=== PATIENT | male | born 1975 | race Caucasian/White ===

== ENCOUNTER 2024-02-25 09:33 | Emergency (ER) | payer OTHER, SELFPAY ==
--- NOTE | ~2024-02-25 | XR_ITS ---
EXAMINATION: XR LUMBOSACRAL SPINE CLINICAL INFORMATION: Low back pain, no trauma COMPARISON: None available. TECHNIQUE: Three views of the lumbosacral spine. FINDINGS: Degenerative disc disease is evident at L5-S1 with 6 mm of retrolisthesis. Prominent anterior osteophyte is evident at this level, as is endplate sclerosis. No acute fracture is detected. Vertebral body height is maintained. XR/XR lumbar spine 2-3V IMPRESSION: Degenerative disc disease with retrolisthesis at L5-S1.
[2024-02-25 10:03] VITALS: BP 122/84; PULSE 73; RESP 16; TEMP 37.1; O2SAT 98; BMI 29.6
--- NOTE | 2024-02-25 13:39 | ED.GENADULT ---
HPI - General Adult General Chief complaint: Back Pain/Injury Stated complaint: Back Pain No Injury Time Seen by Provider: 02/25/24 13:37 Source: patient and interpreter and translator (all interactions with this patient were facilitated with an [facility] interpreter and translator) Mode of arrival: ambulatory Limitations: language barrier (all interactions with this patient were facilitated with an [facility] interpreter and translator) History of Present Illness HPI narrative: Patient is a 48 year old assigned male at with a history of a previous back injury presenting to the emergency department today with low back pain. 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 Patient denies any dizziness, lightheadedness, abdominal pain, nausea, vomiting, fever, chills, blurry vision, double vision, loss of vision, chest pain, difficulty breathing, shortness of breath, night sweats, pain with urination, increased urinary frequency, increased urinary urgency, blood in his urine or stool, syncope or a near syncopal episode, recent trauma or falls, bowel incontinence, bladder incontinence, bowel retention, bladder retention, or any other complaints at this time. Onset (ago): day(s) Location: back Severity: mild Severity scale (1-10): 4 Quality: aching Pain Consistency: constant Relieving factors: none Exacerbating factors: none Associated symptoms: denies other symptoms Treatments prior to arrival: none Related Data Previous Rx's ?Medication ?Instructions ?Recorded cyclobenzaprine 5 mg tablet 5 mg PO TID PRN back pain 7 days 02/25/24 #21 tabs Allergies Allergy/AdvReac Type Severity Reaction Status Date / Time No Known Allergies Allergy Verified 02/25/24 10:06 Review of Systems Constitutional: Constitutional: Reports no additional constitutional complaints, Denies chills, Denies fever(s) and Denies night sweats Eyes: Eyes: Reports no additional eye complaints, Denies blurry vision, Denies change in vision, Denies diplopia, Denies eye discharge, Denies loss of vision and Denies eye pain ENT: Denies dizziness Cardiovascular: Cardiovascular: Reports no additional cardiovascular complaints, Denies chest pain, Denies lightheadedness, Denies Loss of Consciousness and Denies dyspnea Respiratory: Respiratory: Reports no additional respiratory complaints and Denies dyspnea Gastrointestinal: Gastrointestinal: Reports no additional gastrointestinal complaints, Denies abdominal pain, Denies melena, Denies hematochezia, Denies change in bowel habits and Denies change in stool character Genitourinary: Genitourinary: Reports no additional male genitourinary complaints, Denies hematuria, Denies oliguria, Denies difficulty urinating, Denies dysuria, Denies urinary frequency, Denies urinary hesitancy, Denies urinary incontinence and Denies urinary urgency Musculoskeletal: Musculoskeletal: Reports no additional musculoskeletal complaints, Reports back pain, Denies numbness and Denies tingling Neurologic: Denies dizziness, Denies loss of vision, Denies numbness and Denies tingling Psychiatric: Psychiatric: Reports no additional psychiatric complaints Endocrine: Endocrine: Reports no additional endocrine complaints Hematologic/Lymphatic: Hematologic/Lymphatic: Reports no additional hematologic/lymphatic complaints Allergic/Immunologic: Allergic/Immunologic: Reports no additional allergic/immunologic complaints PMFSH Past Medical History Attestation statement: The following information was validated with the patient. Source: old records reviewed and nursing notes reviewed Social History Social History Advance Directives: No Advance Directives Information Provided: No Physical Exam ED Vital Signs: Vital Signs - 24 hr 02/25/24 10:03 02/25/24 14:16 Temperature 98.7 F 98.7 F Pulse Rate 73 73 Respiratory Rate 16 16 Blood Pressure 122/84 122/84 Pulse Oximetry 98 98 Oxygen Delivery Method Room Air Room Air BMI result Body Mass Index 29.6 Const General: cooperative, no acute distress, alert and awake Nutritional Appearance: well nourished Orientation/consciousness: patient oriented x3 Limitations: no limitations [facility] Head: Yes normal to inspection and Yes atraumatic Ears: hearing grossly normal bilaterally and external ears normal General nose exam: Normal external nose present, no nasal discharge noted and no epistaxis Face and sinus: Yes normal facial exam, No abrasion and No laceration Mouth: Normal oral and palatal mucosa present, no drooling and no muffled voice Eyes General: appearance normal, both eyes and all related structures Periorbital: periorbital findings normal Eyelids: Yes eyelids normal Conjunctivae: conjunctivae normal Pupils: Equal, round and reactive pupils present EOM: EOMs intact bilaterally Neck Neck: Yes normal visual inspection, Yes full ROM and Yes no lymphadenopathy Chest Chest palpation & inspection: normal inspection of the chest Resp Effort & Inspection: normal respiratory effort and able to speak in complete sentences GI Inspection: Yes normal to inspection General: Yes no CVA tenderness Back/Spine/Pelvis Back: no CVA tenderness Cervical Spine: normal cervical lordosis and cervical ROM normal Thoracic/Lumbar Spine: thoraco-lumbar ROM normal Pelvis: no pain with anterior-posterior compression Neuro General: patient oriented x3 and moves all extremities Cranial nerves: Yes Equal, round and reactive pupils present Cognition (Neuro): normal cognition Motor exam (neuro): 5/5 motor strength present throughout Sensory Exam: Normal double simultaneous stimulation for sensation Coordination: [id number] test normal Extrem General: Yes normal to inspection, Yes full ROM and Yes capillary refill normal Psych Appearance: grossly normal Mental Status: mental status grossly normal Affect: normal affect Attitude: cooperative Thought process: Normal thought process present Thought content: Normal thought content present Insight: Good insight present (Psych) Medications Administered Discontinued Medications Generic Name Dose Route Start Last Admin Trade Name Freq PRN Reason Stop Dose Admin Cyclobenzaprine HCl 5 mg 02/25/24 13:49 02/25/24 14:10 Cyclobenzaprine Hcl 5 Mg Tablet PO 02/25/24 13:50 5 mg ONCE ONE Administration Ketorolac Tromethamine 15 mg 02/25/24 13:49 02/25/24 14:10 Ketorolac Tromethamine 15 Mg/Ml Vial IM 02/25/24 13:50 15 mg ONCE ONE Administration Medical Decision Making Medical Decision Making [facility] Narrative: Patient is a 48 year old assigned male at with a history of previous back injury presenting to the emergency department today with low back pain. Patient's physical exam was unremarkable. Patient's lumbar x-ray showed degenerative disc disease with retrolisthesis at L5-S1. I explained my physical exam findings as well as all test results to the patient. I answered all questions asked by the patient. I stressed the importance of the patient taking his medication as prescribed. I stressed the importance of the patient following up with his primary care provider. I stressed the importance of the patient returning to the emergency department immediately if his symptoms were to worsen or if he were to develop any dizziness, shortness of breath, difficulty breathing, chest pain, blurry vision, loss of vision, nausea, vomiting, abdominal pain, fever, chills, back pain, or any other complaints. Patient verbalized agreement and understanding with this treatment plan and discharge. Differential Diagnosis Differential Diagnoses: The differential diagnosis associated with the presentation includes Low back pain Lumbar strain Lumbar sprain Admission/Observation Consideration of admission/observation: Escalation of care including admission/observation considered Patient would have been admitted to the hospital had his work up had any findings where hospital admission was appropriate and his clinical presentation warranted hospital admission. Independent Interpretation I performed an independent interpretation of an: Plain X-Ray Interpretation: My interpretation is in agreement with the radiologist's impression of this imaging study. EXAMINATION: XR LUMBOSACRAL SPINE CLINICAL INFORMATION: Low back pain, no trauma COMPARISON: None available. TECHNIQUE: Three views of the lumbosacral spine. FINDINGS: Degenerative disc disease is evident at L5-S1 with 6 mm of retrolisthesis. Prominent anterior osteophyte is evident at this level, as is endplate sclerosis. No acute fracture is detected. Vertebral body height is maintained. XR/XR lumbar spine 2-3V IMPRESSION: Degenerative disc disease with retrolisthesis at L5-S1. Dictated By: Camden Cam MD Signed By: Electronically signed by Camden Cam MD 02/25/24 1038 Radiology Impression Discussion of test interpretation with radiology: I have reviewed the radiologist's reading. Prescription Management I considered prescription management with: Pain Medication (patient prescribed pain medication) Discharge Plan Discharge Clinical Impression: Strain of lumbar region Patient Disposition: Home, Self-Care Instructions: Back Pain (ED) Additional Instructions: Follow up with your primary care provider. Return to the emergency department immediately if your symptoms worsen or if you develop any dizziness, shortness of breath, difficulty breathing, chest pain, blurry vision, loss of vision, nausea, vomiting, abdominal pain, fever, chills, back pain, or any other complaints. Prescriptions: New cyclobenzaprine 5 mg tablet 5 mg PO TID PRN (Reason: back pain) 7 Days Qty: 21 0RF Referrals: [facility] Family Medicine [Provider Group] (Call to establish and follow up with a primary care provider. If you already have a primary care provider, please follow up with them.) [facility] Primary CareMaximilian [Provider Group] [facility] Primary CareClarisa [Provider Group] Stand Alone Forms: Work/School Release Interventions: ED Discharge Assessment Last Done: 02/25/24 14:16 Discharge Date/Time: 02/25/24 14:17 Print Language: New Zealander
[2024-02-25] MEDS: Ketorolac Tromethamine 15 MG/ML VIAL IM (14:10)
[2024-02-25] MEDS: Cyclobenzaprine HCl 5 MG TABLET PO (14:10)
[2024-02-25 14:16] VITALS: BP 122/84; PULSE 73; RESP 16; TEMP 37.1; O2SAT 98
== END 2024-02-25 14:17 | disposition home or self-care (01) ==
PROVIDERS: Emergency Provider Emergency Medicine
DX: M54.50 Low back pain, unspecified (principal)
CPT/HCPCS: 72100; 96372; 99284; J1885

== ENCOUNTER 2024-11-23 12:53 | Emergency (ER) | payer OTHER, SELFPAY ==
[2024-11-23 14:41] VITALS: BP 120/78; PULSE 81; RESP 16; TEMP 37.7; O2SAT 99; BMI 26.7
--- NOTE | 2024-11-23 14:48 | ED_ITS ---
HPI - General Adult General Chief complaint: Upper Respiratory Symptoms Stated complaint: Body pain, nausea, vomiting Time Seen by Provider: 11/23/24 15:41 Source: patient and industrial electrical engineer (fijian) Mode of arrival: ambulatory Limitations: language barrier (fijian) History of Present Illness ED Provider: FAISAL SOLORIO PA-C HPI narrative: 49 year old Arabic speaking male presents to the ED today for evaluation of myalgias, N/V/D, cough, subjective fever x2 days. He reports sick contacts at work. Did not receive this season's flu vaccine. Denies recent travel. denies abd pain, sore throat, sputum procduction. Related Data Previous Rx's ?Medication ?Instructions ?Recorded cyclobenzaprine 5 mg tablet 5 mg PO TID PRN back pain 7 days 02/25/24 #21 tabs ondansetron 4 mg disintegrating 4 mg PO DAILY PRN nausea and 11/23/24 tablet vomiting 5 days #7 tabs phenylephrine-shark liver 1 appl OH Q8H PRN hemorrhoid pain 11/23/24 oil-mineral oil-petrolatum rectal #28.4 grams ointment Allergies Allergy/AdvReac Type Severity Reaction Status Date / Time No Known Allergies Allergy Verified 11/23/24 14:44 Review of Systems 2 Review of Systems: Yes all other systems are reviewed and are negative PMFSH Past Medical History Attestation statement: The following information was validated with the patient. Source: old records reviewed and nursing notes reviewed Social History Social History Advance Directives: No Advance Directives Information Provided: Yes Physical Exam ED Vital Signs: Vital Signs - 24 hr 11/23/24 14:41 Temperature 99.9 F Pulse Rate 81 Respiratory Rate 16 Blood Pressure 120/78 Pulse Oximetry 99 Oxygen Delivery Method Room Air BMI result Body Mass Index 26.7 Course Course Course Narrative: This is a Rapid Medical Examination (RME) performed by Juanis Solorio PA-C in triage. Full HPI, ROS, assessment and treatment plan per primary provider in the Main ED. 49 yo male here for eval of myalgias, cough, subjective fever, diarrhea, poor appetite, nausea/vomiting. +sick contacts at work. + well appearing Plan: labs, viral/strep swabs Reevaluation(s) Reevaluation #1: 1552 -- cbc without leukocytosis or left shift. no anemia, h&h stable. lipase wnl. patient tested positive for influenza A. tolerating crackers. discussed all results w/ patient. educated on symptomatic treatment. Patient has remained stable throughout ED visit today. Discussed worrisome signs and symptoms and when to return to the ED. All questions answered at this time. Patient is agreeable with disposition and stable for discharge. Medical Decision Making Medical Decision Making [facility] Narrative: 49 year old Arabic speaking male presents to the ED today for evaluation of myalgias, N/V/D, cough, subjective fever x2 days. low grade temp 99.9, vitals otherwise wnl. he is nontoxic appearing and in NAD. abdomen benign. lungs clear. Will obtain labs to rule out anemia, electrolyte abnormality, dehydration, gastroenteritis. viral swabs ordered to r/o viral infection. unlikely acute abdomen - ct/ us not warranted. Differential Diagnosis Differential Diagnoses: The differential diagnosis associated with the presentation includes as above Admission/Observation not indicated. Lab Data [facility] Lab Attestation statement: I reviewed the patient's lab results. as above 11/23/24 14:50 11/23/24 14:50 Labs: Lab Results 11/23/24 Range/Units 14:50 WBC 6.4 (4.8-10.8) X10*3/uL RBC 5.24 (4.60-5.80) X10*6/uL Hgb 16.4 (14.0-18.0) g/dl Hct 46.4 (42.0-52.0) % MCV 88.5 (80.0-98.0) fL MCH 31.3 (27.0-33.0) pg MCHC 35.3 (31.0-36.0) g/dl RDW 14.0 (11.0-16.0) % Plt Count 167 (160-400) X10*3/uL MPV 9.1 L (9.4-12.4) fL Immature Gran % (Auto) 0.3 (0.0-0.4) % Neut % (Auto) 57.8 (45-73) % Lymph % (Auto) 28.5 (20-40) % [place] % (Auto) 10.6 (2-11) % Eos % (Auto) 2.2 (0-4) % Baso % (Auto) 0.6 (0-2) % Lymph # (Auto) 1.8 (1.2-4.9) X10*3/uL [place] # (Auto) 0.7 (0.1-1.2) X10*3/uL Eos # (Auto) 0.1 (0.0-0.4) X10*3/uL Baso # (Auto) 0.0 (0.0-0.2) X10*3/uL Abs Immat Gran (auto) 0.02 (0.00-0.03) X10*3/uL Absolute Neuts (auto) 3.7 (2.0-8.3) x10*3/uL Absolute Nucleated RBC 0.000 (0.0-0.012) X10*3/uL Nucleated RBC % (auto) 0.0 (0.0-0.2) /100WBC Sodium 139 (135-145) mmol/L Potassium 4.2 (3.3-5.1) mmol/L Chloride 100 (96-108) mmol/L Carbon Dioxide 26 (22-29) mmol/L Anion Gap 17 (12-20) BUN 12 (9-16) mg/dL Creatinine 1.05 (0.5-1.4) mg/dL Estim Creat Clear Calc 81.3 Estimated GFR > 60 Random Glucose 112 (60-115) mg/dL Calcium 9.2 (8.4-10.2) mg/dL Magnesium 1.9 (1.6-2.6) mg/dL Total Bilirubin 0.2 (0.0-1.0) mg/dL AST 52 H (5-37) U/L ALT 47 H (0-40) U/L Alkaline Phosphatase 65 (39-117) U/L Total Protein 8.5 H (6.5-8.0) g/dL Albumin 4.4 (3.5-5.0) g/dL Lipase 38 (8-78) U/L Influenza Type A (PCR) POSITIVE A (Negative) Influenza Type B (PCR) NEGATIVE (Negative) RSV RNA Qual (PCR) NEGATIVE (Negative) SARS-CoV-2 RNA (RT-PCR) NEGATIVE (Negative) S. pyogenes GrpA GUILLERMO Negative (Negative) External Record Review External record reviewed: Inpatient record Social Determinants Patient?s care significantly limited by Social Determinants of Health including: Other Social Determinant of Health Critical Care Time Critical Care Time Critical Care Time: No Discharge Plan Discharge Clinical Impression: Influenza A Patient Disposition: Home, Self-Care Instructions: Influenza (ED) Additional Instructions: Your blood work today is reassuring. You tested negative for COVID, RSV, strep throat. You tested positive for influenza A. The treatment for this is supportive care. Symptoms can last anywhere from 5-7 days. The recommendation is rest and lots of oral hydration.? Take tylenol/ motrin at home for fevers and body aches. Zofran is an anti-nausea medication. This has been sent to your pharmacy for you to take as needed for nausea.? You can also try over the counter Pepto Bismol or Imodium as needed for upset stomach and diarrhea.? Follow up with your primary care provider this week. If you develop new or worsening symptoms call 911 or come back to the ER for further evaluation. Prescriptions: New ondansetron 4 mg tablet,disintegrating 4 mg PO DAILY PRN (Reason: nausea and vomiting) 5 Days Qty: 7 0RF phenyleph-shark shahnaz oil-mo-pet Ointment 1 appl OH Q8H PRN (Reason: hemorrhoid pain) Qty: 28.4 0RF No Action cyclobenzaprine 5 mg tablet 5 mg PO TID PRN (Reason: back pain) 7 Days Qty: 21 0RF [place]: [facility] [place] Group] [facility] [place] Care, Maximilian [Provider Group] [facility] [place] [facility],Clarisa [Provider Group] Stand Alone Forms: Work/School Release Interventions: ED Discharge Assessment Last Done: 11/23/24 15:55 Discharge Date/Time: 11/23/24 15:56 Print Language: Arabic
[2024-11-23 14:57] LABS: MANUAL DIFF FLAG NO
[2024-11-23 14:58] LABS: Basophils Percent Auto 0.6 % (0-2); Eosinophils Absolute Auto 0.1 X10*3/uL (0.0-0.4); Eosinophils Percent Auto 2.2 % (0-4); Hematocrit 46.4 % (42.0-52.0); Hemoglobin 16.4 g/dl (14.0-18.0); Imm Gran Abs Auto 0.02 X10*3/uL (0.00-0.03); Imm Gran Pct Auto 0.3 % (0.0-0.4); Lymphocytes Absolute Auto 1.8 X10*3/uL (1.2-4.9); Lymphocytes Percent Auto 28.5 % (20-40); Mean Corpuscular HGB Conc 35.3 g/dl (31.0-36.0); Mean Corpuscular Hemoglobin 31.3 pg (27.0-33.0); Mean Corpuscular Volume 88.5 fL (80.0-98.0); Mean Platelet Volume 9.1 fL (9.4-12.4); Monocytes Absolute Auto 0.7 X10*3/uL (0.1-1.2); Monocytes Percent Auto 10.6 % (2-11); Neutrophils Absolute Auto 3.7 x10*3/uL (2.0-8.3); Neutrophils Percent Auto 57.8 % (45-73); Platelet Count 167 X10*3/uL (160-400); Red Blood Count 5.24 X10*6/uL (4.60-5.80); White Blood Count 6.4 X10*3/uL (4.8-10.8)
[2024-11-23 15:06] LABS: IDNOW Serial# 08D9AD1C; Strep A Nucleic Acid Negative (Negative)
[2024-11-23 15:13] LABS: Alanine Aminotransferase 47 U/L (0-40); Albumin Level 4.4 g/dL (3.5-5.0); Alkaline Phosphatase 65 U/L (39-117); Anion Gap 17 (12-20); Aspartate Amino Transferase 52 U/L (5-37); Bilirubin Total 0.2 mg/dL (0.0-1.0); Blood Urea Nitrogen 12 mg/dL (9-16); Calcium 9.2 mg/dL (8.4-10.2); Carbon Dioxide 26 mmol/L (22-29); Chloride 100 mmol/L (96-108); Creatinine Clr Calc Pharmacy 81.3; Estimated Glomerular Filt Rate > 60; Glucose Random 112 mg/dL (60-115); Lipase 38 U/L (8-78); Magnesium 1.9 mg/dL (1.6-2.6); Potassium 4.2 mmol/L (3.3-5.1); Sodium 139 mmol/L (135-145); Total Protein 8.5 g/dL (6.5-8.0)
[2024-11-23 15:35] LABS: Influenza A PCR POSITIVE (Negative); Influenza B PCR NEGATIVE (Negative); Resp Syncy Virus RNA Qual PCR NEGATIVE (Negative); SARS COV2 PCR INHOUSE NEGATIVE (Negative)
--- OUTSIDE RECORDS SUMMARY | 2024-11-23 15:54 | XMS_ITS | Clinical Summary ---
Author Organization [employer] Address [address] [place] [address] Care Team Providers Care Chancery Clerk Name Role Phone Unavailable Primary Care Provider Unavailabl e Allergies No known active allergies Medications cyclobenzaprine (Flexeril) 5 MG tablet TAKE 1 TABLET BY MOUTH THREE TIMES A DAY NEEDED FOR PAIN FOR 7 DAYS 02/25/2024 Active Social History Tobacco Use Types Packs/Day Years Used Date Smoking Tobacco: Former Cigarettes 0.5 25.1 S tarted: 2000 Smokeless Tobacco: Former Tobacco Cessation:Counseling Given: Not Answered Alcohol Use Standard Drinks/Week Comments Not Currently 0 (1 standard drink = 0.6 oz pur e alcohol) Sex and Gender Information Value Date Recorded Sex Assigned at Male 02/27/2024 12:03 PM EDT Legal Sex Male 10:24 AM EST Gender Identity Male 02/27/2024 12:03 PM EDT Sexual Orientation Straight 02/27/2024 12 :03 PM EDT Last Filed Vital Signs Vital Sign Reading Time Taken Comments Blood Pressure 118/80 04/08/2024 9:08 AM EDT Pulse 68 04/08/2024 9:08 AM EDT Temperature - - Respiratory Rate - - Oxygen Saturation - - Inhaled Oxygen Concentration - - Weight - - Height - - Body Mass Index - - Plan of Treatment Health Maintenance Due Date Last Done Comments CT Colonography 1977 Colonoscopy 1977 Colorectal Cancer Screening 1977 Dental Oral Exam 1977 Dental Prophylaxis 1977 Dental X-Ray: Bitewings 1977 Depression Screening 1977 FIT DNA/Cologuard 1977 FIT 1977 FOBT 1977 HIV Screening 1977 Lipid Panel 1977 SDOH Screening 1977 Sigmoidoscopy 1977 Alcohol/Substance Use Screening 1989 Family Planning (PISQ) 1992 Hepatitis C Screening 1995 DTaP/Tdap/Td Vaccines (1 - Tdap) 1996 Hepatitis B Vaccines (1 of 3 - 19+ 3-dose series) 1996 COVID-19 Vaccine (1 - 2023-2 5 season) 2024 Influenza Vaccine (#1) 2024 Tobacco Screening 04/08/2025 04/08/2024 Zoster Vaccines (1 of 2) 2027 Dental X-Ray: Full Mouth 04/09/2027 04/08/2024 RSV Patients and Pa tients Aged 60 years or older (1 - 1-dose 75+ series) 2052 HIB Vaccines Aged Out No longer eligi ble based on patient's age to complete this topic HPV Vaccines Aged Out No longer eligi ble based on patient's age to complete this topic Hepatitis A Vaccines Aged Out No long er eligible based on patient's age to complete this topic IPV Vaccines Aged Out No longer eligi ble based on patient's age to complete this topic Meningococcal Vaccine Aged Out No amado saul eligible based on patient's age to complete this topic Pneumococcal Vaccine: Pediat rics (0 to 5 Years) and At-Risk Patients (6 to 49) Years) Aged Out No longer elig ible based on patient's age to complete this topic RSV under 20 months Aged Out No longe r eligible based on patient's age to complete this topic Rotavirus Vaccines Aged Out No longer eligible based on patient's age to complete this topic Procedures Procedure Name Priority Date/Time Associated Diagnosis Comments PANORAMIC RADIOGRAPHIC IMAGE Routine 04/08/2024 9:30 AM EDT Dental caries Dental abscess Dental calculus Periodontal disease from Last 3 Months or Most Recently Relevant to Health Maintenance Insurance DENTAL - HSN PARTIAL (MEDICAID)
--- OUTSIDE RECORDS SUMMARY | 2024-11-23 15:54 | XMS_ITS | Encounter Summary ---
Author Organization [employer] Address [address] [place] [address] Care Team Providers Care Rotary Operator Name Role Phone Unavailable Primary Care Provider Unavailabl e Reason for Visit * Reason Onset Date Comments appt 07/07/2024 Encounter Details Date Type Department Care Team (Late st Contact Info) Description 07/07/2024 Telephone C ADULT DENTAL [address], [place] [id number] Wiley Suh DDS [address], [place] [phone] appt Social History Tobacco Use Types Packs/Day Years Used Date Smoking Tobacco: Former Cigarettes 0.5 25.1 S tarted: 2000 Smokeless Tobacco: Former Alcohol Use Standard Drinks/Week Comments Not Currently 0 (1 standard drink = 0.6 oz pur e alcohol) Sex and Gender Information Value Date Recorded Sex Assigned at Male 02/27/2024 12:03 PM EDT Legal Sex Male 10:24 AM EST Gender Identity Male 02/27/2024 12:03 PM EDT Sexual Orientation Straight 02/27/2024 12 :03 PM EDT documented as of this encounter Miscellaneous Notes * Telephone Encounter - Breanna Mcneil - 07/07/2024 3:57 PM EDT Patient checking in on status of ext appt. On active request since 03/2024. documented in this encounter Plan of Treatment Not on file documented as of this encounter Visit Diagnoses Not on filedocumented in this encounter
[2024-11-23 15:55] VITALS: BP 120/78; PULSE 81; RESP 16; TEMP 37.7; O2SAT 99
== END 2024-11-23 15:56 | disposition home or self-care (01) ==
PROVIDERS: Physician Assistant Medical; Emergency Provider Emergency Medicine
DX: J10.1 Influenza due to other identified influenza virus with other respiratory manifestations (principal); M79.10 Myalgia, unspecified site; R11.2 Nausea with vomiting, unspecified; R05.9 Cough, unspecified; Z03.818 Encounter for observation for suspected exposure to other biological agents ruled out; Z79.899 Other long term (current) drug therapy
CPT/HCPCS: 0241U; 80053; 83690; 83735; 85025; 87651; 99282; 99283

== ENCOUNTER 2024-11-27 10:46 | Inpatient (IN) | payer OTHER, SELFPAY ==
--- NOTE | ~2024-11-27 | CT_ITS ---
CLINICAL HISTORY: rectal pain x [address] pelvis with contrast Comparison: None Findings: Right posterior perirectal abscess measuring 2.7 x 2.0 x 3.5 cm. No soft tissue gas. No obstruction of the visualized bowel. Urinary bladder is within normal limits. No acute fracture. IMPRESSION: 1. Right posterior perirectal abscess measuring 2.7 x 2.0 x 3.5 cm. This document has been electronically signed by: Gaston Aerllano MD on 11/27/2024 18:18:18
[2024-11-27 11:14] VITALS: BP 133/83; PULSE 85; RESP 16; TEMP 37.1; O2SAT 97; BMI 26.6
--- NOTE | 2024-11-27 11:15 | ED.GENADULT ---
HPI - General Adult General Chief complaint: General Medical Stated complaint: pain when sitting, unable to urinate Time Seen by Provider: 11/27/24 14:25 Source: patient, RN notes reviewed, old records reviewed and estimator binding Mode of arrival: ambulatory Limitations: language barrier History of Present Illness ED Provider: Lance HPI narrative: Patient is a 49-year-old Montserratian speaking male presenting to the emergency department with complaint of rectal pain, pain while sitting, and pain with urination since Friday. Has not had normal bowel movement for the past week due to pain. Denies abdominal pain, nausea, vomiting. Reports one episode of bright red rectal bleeding when wiping two weeks ago. Denies recent unprotected intercourse. Denies anal penetration. Denies any penile discharge. States he had not urinated since yesterday but was able to provide urine specimen here once in room. Tested positive for influenza on 11/23. MD complaint: rectal pain Onset (ago): day(s) Radiation: non-radiation Severity: severe Quality: aching Pain Consistency: constant Exacerbating factors: other (sitting, urinating, bowel movements) Treatments prior to arrival: none Related Data Previous Rx's ?Medication ?Instructions ?Recorded cyclobenzaprine 5 mg tablet 5 mg PO TID PRN back pain 7 days 02/25/24 #21 tabs ondansetron 4 mg disintegrating 4 mg PO DAILY PRN nausea and 11/23/24 tablet vomiting 5 days #7 tabs phenylephrine-shark liver 1 appl [place] Q8H PRN hemorrhoid pain 11/23/24 oil-mineral oil-petrolatum rectal #28.4 grams ointment Allergies Allergy/AdvReac Type Severity Reaction Status Date / Time No Known Allergies Allergy Verified 11/27/24 11:18 Review of Systems Review of Systems: As per HPI Yes all other systems are reviewed and are negative Constitutional: Constitutional: Reports as per HPI [facility] Social History Social History Advance Directives: No Advance Directives Information Provided: No Physical Exam ED Vital Signs: Vital Signs - 24 hr 11/27/24 11:14 11/27/24 14:54 11/27/24 18:40 Temperature 98.8 F 98.5 F 99.5 F Pulse Rate 85 58 67 Respiratory Rate 16 13 12 Blood Pressure 133/83 138/69 118/59 L Pulse Oximetry 97 97 98 Oxygen Delivery Method Room Air Room Air Room Air BMI result Body Mass Index 26.6 Vital signs have been reviewed and appear to be correct. Blood pressure normal. Heart rate normal. Respiratory rate normal. Temperature normal. Oxygen saturation normal. Const General: cooperative, healthy appearing and no acute distress Orientation/consciousness: oriented to person, oriented to place, oriented to time and patient oriented x3 Limitations: no limitations HENMT Head: Yes normocephalic and Yes atraumatic Ears: external ears normal General nose exam: Normal external nose present Face and sinus: Yes face symmetric Mouth: oropharynx normal and moist mucous membranes Throat: Yes uvula midline Eyes Pupils: Equal, round and reactive pupils present Neck Neck: Yes normal visual inspection and Yes supple Resp Effort & Inspection: normal respiratory effort and able to speak in complete sentences Auscultation: clear to auscultation bilaterally Cardio Rate: regular rate Rhythm: regular rhythm Heart sounds: S1 normal heart sound present and S2 normal heart sound present GI Other: Rectal exam chaperoned by KARO Caban. Palpation (GI): Soft to palpation and nontender Auscultation: normoactive bowel sounds Rectal Exam - Male: Yes visual inspection normal and Yes tenderness (exquisite tenderness on palpation) General: Yes no CVA tenderness Back/Spine/Pelvis Back: no CVA tenderness Skin General skin exam: elasticity normal and turgor normal Neuro General: oriented to person, oriented to place, oriented to time, patient oriented x3, moves all extremities, no focal motor deficits and CN's II-XI intact bilaterally Cranial nerves: Yes Equal, round and reactive pupils present Cognition (Neuro): normal cognition Extrem General: Yes full ROM, Yes no pedal edema and Yes no calf tenderness Psych Mental Status: mental status grossly normal Affect: normal affect Thought process: Normal thought process present Course Course Course Narrative: RME performed by Mariel Quintanilla PA-C. Patient is a 49 year old assigned male at presenting to the emergency department with anal pain and difficulty urinating. Patient states that he is having pain that feels as though it is inside his anus and is making it difficult for him to urinate or have a bowel movement. Patient states that he was here 2 days ago and diagnosed with Influenza. Detailed physical exam and review of systems are deferred to the psychology clinician. Labs ordered. Patient placed back in the waiting room pending room availability and results. Medications Administered Discontinued Medications Generic Name Dose Route Start Last Admin Trade Name Leno PRN Reason Stop Dose Admin Iohexol 100 ml 11/27/24 16:50 11/27/24 16:51 Iohexol 350 Mg/Ml 100 Ml Infus..Btl IV 11/27/24 16:51 85 ml ONCE ONE Administration Morphine Sulfate 2 mg 11/27/24 18:39 11/27/24 18:44 Morphine Sulfate 2 Mg/Ml Cartridge IVPUSH 11/27/24 18:40 2 mg ONCE ONE Administration Protocol Medical Decision Making Medical Decision Making [facility] Narrative: Patient is a 49-year-old [place] speaking male presenting to the emergency department with complaint of rectal pain, pain while sitting, and pain with urination since Friday. On exam patient is awake, A+Ox3, VS WNL, afebrile, normal neurological exam without focal deficits, physical exam findings as above. Given reported symptoms and physical exam findings, initial differential includes but is not limited to UTI, STI, prostatitis, perirectal abscess. Labs notable for mild leukocytosis, otherwise unremarkable. Exquisitely tender to palpation on rectal exam. CT notable for perirectal abscess. My interpretation is in agreement with radiologist's interpretation. Case discussed with Dr. Ramirez who assessed patient at bedside, will admit inpatient for IV antibiotics. Differential Diagnosis Differential Diagnoses: The differential diagnosis associated with the presentation includes As per [facility] Admission/Observation Consideration of admission/observation: Escalation of care including admission/observation considered Consult Healthcare Provider Management of the patient was discussed with: Sdet (Dr. Ramirez ) Lab Data [facility] Lab Attestation statement: I reviewed the patient's lab results. As per [facility] 11/27/24 11:22 11/27/24 11:22 Labs: Lab Results 11/27/24 11/27/24 Range/Units 11:22 15:43 WBC 11.2 H (4.8-10.8) X10*3/uL RBC 4.65 (4.60-5.80) X10*6/uL Hgb 14.9 (14.0-18.0) g/dl Hct 41.6 L (42.0-52.0) % MCV 89.5 (80.0-98.0) fL MCH 32.0 (27.0-33.0) pg MCHC 35.8 (31.0-36.0) g/dl RDW 13.9 (11.0-16.0) % Plt Count 210 D (160-400) X10*3/uL MPV 9.7 (9.4-12.4) fL Immature Gran % (Auto) 0.4 (0.0-0.4) % Neut % (Auto) 72.6 (45-73) % Lymph % (Auto) 19.6 L (20-40) % [place] % (Auto) 6.8 (2-11) % Eos % (Auto) 0.4 (0-4) % Baso % (Auto) 0.2 (0-2) % Lymph # (Auto) 2.2 (1.2-4.9) X10*3/uL [place] # (Auto) 0.8 (0.1-1.2) X10*3/uL Eos # (Auto) 0.0 (0.0-0.4) X10*3/uL Baso # (Auto) 0.0 (0.0-0.2) X10*3/uL Abs Immat Gran (auto) 0.05 H (0.00-0.03) X10*3/uL Absolute Neuts (auto) 8.1 (2.0-8.3) x10*3/uL Absolute Nucleated RBC 0.000 (0.0-0.012) X10*3/uL Nucleated RBC % (auto) 0.0 (0.0-0.2) /100WBC Smear Tech's Comments VERIFIED Sodium 140 (135-145) mmol/L Potassium 4.2 (3.3-5.1) mmol/L Chloride 108 (96-108) mmol/L Carbon Dioxide 24 (22-29) mmol/L Anion Gap 12 (12-20) BUN 11 (9-16) mg/dL Creatinine 0.80 (0.5-1.4) mg/dL Estim Creat Clear Calc 106.7 Estimated GFR > 60 Random Glucose 133 H (60-115) mg/dL Calcium 9.0 (8.4-10.2) mg/dL Magnesium 2.0 (1.6-2.6) mg/dL Total Bilirubin 0.3 (0.0-1.0) mg/dL AST 38 H (5-37) U/L ALT 39 (0-40) U/L Alkaline Phosphatase 63 (39-117) U/L Total Protein 8.1 H (6.5-8.0) g/dL Albumin 4.0 (3.5-5.0) g/dL Urine Color Dark Yellow Urine Appearance Clear Urine pH 6.0 (5.0-9.0) Ur Specific [place] 1.025 (1.005-1.025) Urine Protein 100 (2+) H (Neg-Trace) mg/dL Urine Glucose (UA) Negative (Negative) mg/dL Urine Ketones Negative (Negative) mg/dL Urine Blood Small (1+) H (Negative) Urine Nitrite Negative (Negative) Ur Leukocyte Esterase Negative (Negative) Urine RBC 6-10 H (0-2) /HPF Urine WBC 0-5 (0-5) /HPF Ur Squamous Epith Cells 0-2 (0-2) /HPF Urine Bacteria None Seen (None Seen) Hyaline Casts 0-2 (0-2) /LPF Independent Interpretation I performed an independent interpretation of an: CT Scan Interpretation: CT pelvis notable for right perirectal abscess measuring 2.7 x 2 x 3.5 cm Radiology Impression Discussion of test interpretation with radiology: I have reviewed the radiologist's reading. Radiologist Impression: CT pelvis with contrast Comparison: None Findings: Right posterior perirectal abscess measuring 2.7 x 2.0 x 3.5 cm. No soft tissue gas. No obstruction of the visualized bowel. Urinary bladder is within normal limits. No acute fracture. IMPRESSION: 1. Right posterior perirectal abscess measuring 2.7 x 2.0 x 3.5 cm. External Record Review External record reviewed: Inpatient record, Office record and Outpatient record Prescription Management I considered prescription management with: Antibiotic Discharge Plan Discharge Prescriptions: No Action cyclobenzaprine 5 mg tablet 5 mg PO TID PRN (Reason: back pain) 7 Days Qty: 21 0RF ondansetron 4 mg tablet,disintegrating 4 mg PO DAILY PRN (Reason: nausea and vomiting) 5 Days Qty: 7 0RF phenyleph-shark shahnaz oil-mo-pet Ointment 1 appl W[place] Q8H PRN (Reason: hemorrhoid pain) Qty: 28.4 0RF Print Language: Monts[place]ian
[2024-11-27 11:32] LABS: Basophils Percent Auto 0.2 % (0-2); Eosinophils Percent Auto 0.4 % (0-4); Hematocrit 41.6 % (42.0-52.0); Hemoglobin 14.9 g/dl (14.0-18.0); Imm Gran Abs Auto 0.05 X10*3/uL (0.00-0.03); Imm Gran Pct Auto 0.4 % (0.0-0.4); Lymphocytes Absolute Auto 2.2 X10*3/uL (1.2-4.9); Lymphocytes Percent Auto 19.6 % (20-40); MANUAL DIFF FLAG SCAN; Mean Corpuscular HGB Conc 35.8 g/dl (31.0-36.0); Mean Corpuscular Volume 89.5 fL (80.0-98.0); Mean Platelet Volume 9.7 fL (9.4-12.4); Monocytes Absolute Auto 0.8 X10*3/uL (0.1-1.2); Monocytes Percent Auto 6.8 % (2-11); Neutrophils Absolute Auto 8.1 x10*3/uL (2.0-8.3); Neutrophils Percent Auto 72.6 % (45-73); PLT CLUMP 1; Platelet Count 210 X10*3/uL (160-400); Red Blood Count 4.65 X10*6/uL (4.60-5.80); Red Cell Distribution Width 13.9 % (11.0-16.0); SCAN SMEAR FLAG 1; White Blood Count 11.2 X10*3/uL (4.8-10.8)
[2024-11-27 11:48] LABS: SLIDE REVIEW VERIFIED
[2024-11-27 11:53] LABS: Alanine Aminotransferase 39 U/L (0-40); Alkaline Phosphatase 63 U/L (39-117); Anion Gap 12 (12-20); Aspartate Amino Transferase 38 U/L (5-37); Bilirubin Total 0.3 mg/dL (0.0-1.0); Blood Urea Nitrogen 11 mg/dL (9-16); Carbon Dioxide 24 mmol/L (22-29); Chloride 108 mmol/L (96-108); Creatinine Clr Calc Pharmacy 106.7; Estimated Glomerular Filt Rate > 60; Glucose Random 133 mg/dL (60-115); Potassium 4.2 mmol/L (3.3-5.1); Sodium 140 mmol/L (135-145); Total Protein 8.1 g/dL (6.5-8.0)
[2024-11-27 14:54] VITALS: BP 138/69; PULSE 58; RESP 13; TEMP 36.9; O2SAT 97
[2024-11-27 16:05] LABS: Appearance Urine Clear; Color Urine Dark Yellow; Glucose Urine UA Negative (Negative); Leukocyte Esterase Urine Negative (Negative); Nitrite Urine Negative (Negative); Specific Gravity - Urine 1.025 (1.005-1.025); UMIC TRIGGER UACC YES; Urine Blood Small (1+) (Negative); Urine Ketones Negative (Negative); Urine Protein 100 (2+) mg/dL (Neg-Trace)
[2024-11-27 16:10] LABS: Bacteria Urine None Seen (None Seen); Hyaline Casts Urine 0-2 /LPF (0-2); Squamous Epithelial Cell Urine 0-2 /HPF (0-2); WBC Urine 0-5 /HPF (0-5)
[2024-11-27] MEDS: iohexoL 350 MG/ML 100 ML INFUS..BTL IV (16:51)
[2024-11-27 18:40] VITALS: BP 118/59; PULSE 67; RESP 12; TEMP 37.5; O2SAT 98
[2024-11-27] MEDS: Morphine Sulfate 2 MG/ML CARTRIDGE IVPUSH (18:44)
--- NOTE | 2024-11-27 19:34 | PM.HPGS ---
History of Present Illness History of Present Illness Date of Service: 11/27/24 Chief complaint: pain when sitting, unable to urinate Narrative: Alexandre Ahn is a 49 year old male who has been having rectal pain for the last week no significant fever chills no drainage no trauma to the area having a little more difficulty with urinating. Comes into the emergency room. Here white count is little elevate And on physical exam there is mild fullness to the right of the perianal opening and significant tenderness with rectal exam. No drainage. CT scan shows right perirectal abscess PMFSH Social History Social History Advance Directives: No Advance Directives Information Provided: No Meds Allergies Allergy/AdvReac Type Severity Reaction Status Date / Time No Known Allergies Allergy Verified 11/27/24 11:18 Physical Exam Vital Signs: Vital Signs: Last Vital Signs Temp 99.5 F 11/27/24 18:40 Pulse 67 11/27/24 18:40 Resp 12 11/27/24 18:40 BP 118/59 L 11/27/24 18:40 Pulse Ox 98 11/27/24 18:40 O2 Del Method Room Air 11/27/24 18:40 BMI result Body Mass Index 26.6 Const: General: cooperative, healthy appearing and comfortable Resp: Effort & Inspection: normal respiratory effort Auscultation: clear to auscultation bilaterally Cardio: Rate: regular rate Rhythm: regular rhythm GI: Other: Abdomen soft nontender right perirectal anal area with a little fullness and some tenderness but no external signs of any drainage. Results Results Labs: Short CBC 11/27/24 Range/Units 11:22 WBC 11.2 H (4.8-10.8) X10*3/uL Hgb 14.9 (14.0-18.0) g/dl Hct 41.6 L (42.0-52.0) % Plt Count 210 D (160-400) X10*3/uL BMP 11/27/24 11:22 Sodium 140 Potassium 4.2 Chloride 108 Carbon Dioxide 24 BUN 11 Creatinine 0.80 Calcium 9.0 Liver Function 11/27/24 Range/Units 11:22 Total Bilirubin 0.3 (0.0-1.0) mg/dL AST 38 H (5-37) U/L ALT 39 (0-40) U/L Alkaline Phosphatase 63 (39-117) U/L Albumin 4.0 (3.5-5.0) g/dL Urine 11/27/24 Range/Units 15:43 Urine Color Dark Yellow Urine Appearance Clear Urine pH 6.0 (5.0-9.0) Ur Specific [place] 1.025 (1.005-1.025) Urine Protein 100 (2+) H (Neg-Trace) mg/dL Urine Glucose (UA) Negative (Negative) mg/dL Additional studies: [address] [address] [address] Scan Report Signed Patient: Alexandre Miguel MR#: [id number] : 1975 Acct:[id number] Age/Sex: 49 / M ADM Date: 11/27/24 Loc: .ED Attending Dr: Ordering Physician: Edith Lucas NP Date of Service: 11/27/24 Procedure(s): CT pelvis w IV con Accession Number(s): [id number] cc: Physician,Unknown ; Edith Lucas NP~ Report Number: [id number]: Total DLP = 228.00 mGy-cm CLINICAL HISTORY: rectal pain x [address] pelvis with contrast Comparison: None Findings: Right posterior perirectal abscess measuring 2.7 x 2.0 x 3.5 cm. No soft tissue gas. No obstruction of the visualized bowel. Urinary bladder is within normal limits. No acute fracture. IMPRESSION: 1. Right posterior perirectal abscess measuring 2.7 x 2.0 x 3.5 cm. This document has been electronically signed by: Gaston Arellano MD on 11/27/2024 18:18:18 Dictated By: Gaston Arellano MD Signed By: <Electronically signed by Gaston Arellano MD in OV> 11/27/241817 DD/ 17 TD/TT: 11/27/241817 [employer]phalt Roller Person: Assessment and Plan (1) [place]-rectal abscess: Status: Acute Plan 49-year-old male with deeper perirectal abscess right side plan to admit treat with IV antibiotics reexamined tomorrow if not improved carried to the OR for exam under anesthesia and drainage of abscess. He understands and agrees with the above plan Quality Stroke Does the patient have a stroke diagnosis?: No VTE Prior VTE?: No VTE Risk Level:: Surgical - low VTE Device Contraindication: Treatment Not Indicated VTE Drug Contraindication: Treatment Not Indicated Procedures Date of Service Date of Service: 11/27/24
[2024-11-27] MEDS: Piperacillin Sodium/Tazobactam 3.375 GM in 0.9 % Sodium Chloride 50 ML IV (20:23)
[2024-11-27 21:20] VITALS: BP 121/62; PULSE 66; RESP 16; TEMP 36.8; O2SAT 98
[2024-11-27] MEDS: Morphine Sulfate 4 MG/ML CARTRIDGE 3 MG IVPUSH (23:26)
--- NOTE | 2024-11-27 23:27 | PC.NURSE ---
medicated per mar.
[2024-11-28] VITALS (11 sets, daily range): BP systolic 112–136; BP diastolic 55–88; PULSE 56–86; RESP 7–23; TEMP 35.9–37.6; O2SAT 94–99
[2024-11-28] MEDS: Piperacillin Sodium/Tazobactam 3.375 GM in 0.9 % Sodium Chloride 50 ML IV ×4 (02:54→21:09)
[2024-11-28] MEDS: Morphine Sulfate 4 MG/ML CARTRIDGE 3 MG IVPUSH ×3 (02:58→11:38)
[2024-11-28] MEDS: 0.9 % Sodium Chloride Flush 3 ML SYRINGE IVFLUSH ×3 (08:03→21:10)
--- NOTE | 2024-11-28 09:16 | PHA.MEDREC ---
Addendum entered by Dimas Rodriguez RPh 11/28/24 13:30: Med rec was reviewed by [facility]. Original Note: Pharmacy Consult ? Medication Reconciliation Pharmacy has completed the medication reconciliation. [facility] services utilized. Spoke to pt to confirm meds.
[2024-11-28 09:43] LABS: CT PCR NOT DETECTED (Not Detect.); NG PCR NOT DETECTED (Not Detect.)
--- NOTE | 2024-11-28 11:18 | MHC.CM.PN ---
CM ASSESSMENT COMPLETED W/ [employer]LASTICO[employer] ASSISTANCE. PATIENT LIVES IN A HOME W/ . INDEPENDENT. DENIES USE OF DME OR SERVICES. PCP CHRIS MADDEN MD @ [facility]ET[facility]IMARY [facility] NO HCP. CM PROVIDED EDUCATION AND OFFERED ASSISTANCE. PATIENT DECLINED. DP: GOAL IS HOME SELF CARE, FAMILY TO TRANSPORT. CM WILL CONTINUE TO FOLLOW.
--- NOTE | 2024-11-28 12:18 | PC.NURSE ---
Pt reports difficulty with voiding. Bladder scanned for 421 ml, pt was able to void 200 concentrated yellow urine, post void residual scan 59. MD Ramirez made aware. No other interventions needed at this time.
--- NOTE | 2024-11-28 12:33 | P.CONAN_ITS ---
PMF Active Problems Active Problems: All Active Problems Henrietta-rectal abscess (Acute) Family History Family history of problems with anesthesia: No Surgical History History of Problems with Anesthesia: No Social History Social History Household Members: Spouse Housing: Apartment Do you presently have visiting nurse or other home services: No Patient Tobacco Use Status: Current everyday Tobacco user Tobacco use type: Cigarette Cigarette Packs Per Day: 2 Cigarettes Per Day: 40.0 Substance Use Type: Marijuana service: No Meds Allergies Allergy/AdvReac Type Severity Reaction Status Date / Time No Known Allergies Allergy Verified 11/27/24 11:18 Active Medications: Current Medications Acetaminophen (Acetaminophen 325 Mg Tablet) 650 mg PO Q6H PRN PRN Reason: Pain, Mild 1-3,fever,headache Calcium Carbonate (Calcium Carbonate 750 Mg Tab.Chew) 750 mg PO Q4H PRN PRN Reason: Heartburn Piperacillin Sod/Tazobactam (Sod 3.375 gm/ Sodium Chloride) 50 mls @ 100 mls/hr IV Q6H [facility] Last Infusion: 11/28/24 08:43 Dose: Infused Magnesium Hydroxide (Milk Of Magnesia 30 Ml Oral.Susp) 30 ml PO DAILY PRN PRN Reason: Constipation Melatonin (Melatonin 3 Mg Tablet) 6 mg PO BEDTIME PRN PRN Reason: Insomnia Morphine Sulfate (Morphine Sulfate 4 Mg/Ml Cartridge) 3 mg IVPUSH Q4H PRN; Protocol PRN Reason: Pain, Severe (Pain Scale 7-10) Last Admin: 11/28/24 11:38 Dose: 3 mg Sodium Chloride (0.9 % Sodium Chloride Flush 3 Ml Syringe) 3 ml IVFLUSH [facility] Last Admin: 11/28/24 08:03 Dose: 3 ml Home Medications ?Medication ?Instructions ?Recorded ?Confirmed ?Last Taken ?Type acetaminophen 325 mg tablet 650 mg PO Q6H PRN Pain 11/28/24 11/28/24 Unknown History (Tylenol) ibuprofen 200 mg tablet (Advil) 400 mg PO Q8H PRN Pain 11/28/24 11/28/24 Unknown History Exam Height,Weight and Vital Signs: Height 5 ft 7 in Weight 77.1 kg Last Vital Signs Temp 98.2 F 11/28/24 07:44 Pulse 64 11/28/24 07:44 Resp 20 11/28/24 07:44 BP 117/69 11/28/24 07:44 Pulse Ox 97 11/28/24 07:44 O2 Del Method Room Air 11/28/24 07:44 Pertinent Lab Results Pertinent Lab Results: Laboratory Tests 11/27/24 11/27/24 11:22 15:43 WBC 11.2 H RBC 4.65 Hgb 14.9 Hct 41.6 L MCV 89.5 MCH 32.0 MCHC 35.8 RDW 13.9 Plt Count 210 D MPV 9.7 Immature Gran % (Auto) 0.4 Neut % (Auto) 72.6 Lymph % (Auto) 19.6 L [place] % (Auto) 6.8 Eos % (Auto) 0.4 Baso % (Auto) 0.2 Lymph # (Auto) 2.2 [place] # (Auto) 0.8 Eos # (Auto) 0.0 Baso # (Auto) 0.0 Abs Immat Gran (auto) 0.05 H Absolute Neuts (auto) 8.1 Absolute Nucleated RBC 0.000 Nucleated RBC % (auto) 0.0 Smear Tech's Comments VERIFIED Sodium 140 Potassium 4.2 Chloride 108 Carbon Dioxide 24 Anion Gap 12 BUN 11 Creatinine 0.80 Estim Creat Clear Calc 106.7 Estimated GFR > 60 Random Glucose 133 H Calcium 9.0 Magnesium 2.0 Total Bilirubin 0.3 AST 38 H ALT 39 Alkaline Phosphatase 63 Total Protein 8.1 H Albumin 4.0 Urine Color Dark Yellow Urine Appearance Clear Urine pH 6.0 Ur Specific [place] 1.025 Urine Protein 100 (2+) H Urine Glucose (UA) Negative Urine Ketones Negative Urine Blood Small (1+) H Urine Nitrite Negative Ur Leukocyte Esterase Negative Urine RBC 6-10 H Urine WBC 0-5 Ur Squamous Epith Cells 0-2 Urine Bacteria None Seen Hyaline Casts 0-2 Chlam trachomat DNA PCR NOT DETECTED N.gonorrhoeae DNA (PCR) NOT DETECTED Airway Mallampati Class: II TM Dist: >3cm Neck ROM: Full Assessment and Plan Assessment Anesthesia Assessment: Anesthesia Plan Discussed and Chart Reviewed Final Anesthetic Review Family History of Problems with Anesthesia: No History of Problems with Anesthesia: No NPO: Yes ASA Class: II and Emergency Final Preanesthetic Review: No Changes in Pt Med Stat, Meds/Allgs Chart Reviewed, Consent Obtained/Reviewed and Anes Risks/Benef Reviewed Patient Risk: Low Procedure Risk: Low Anesthetic Plan Anesthetic Plan: GA Disposition: Standard PACU
[2024-11-28] MEDS: fentaNYL citrate/PF 100 MCG/2 ML VIAL 50 MCG IVPUSH (14:05)
[2024-11-28] MEDS: Docusate Sodium 100 MG CAPSULE PO ×2 (15:29→21:10)
--- NOTE | 2024-11-28 17:46 | W.PM.OPN ---
Operative Note Operative Note Date of Service: 11/28/24 Narrative: Preop diagnosis--perirectal abscess Postop diagnosis--perirectal abscess Procedure--incision and drainage of perirectal abscess Surgeon--Dudleyemily Anesthesia--general History--patient is a 49-year-old male who comes in with a couple day history of rectal pain getting worse trouble urinating and CT scan showing right-sided perirectal abscess. He has never had anything like this before Findings--right-sided perirectal abscess Procedure-- Patient was brought to the operative room under Anesthesia guidance was not intubated. He had compression stockings placed before induction received preoperative antibiotics. He was placed in lithotomy position. Once he was asleep the area was inspected again and there was no external draining or even significant erythema around the area of the abscess. Rectal exam did not reveal any draining sinuses or fistulas. There was a little indentation posterior midline which with the probed did not go very far. There was some fullness to the right posterior wall which is where the abscess was noted on CT scan. 18 gauge needle was placed in this area from the external perirectal space and purulent material was obtained. This was sent off for culture. Now an 11 blade was used to make a stab wound to the around the 7 o'clock position and immediately pus was released and a snap placed and spread. The area was irrigated and probed with a finger and a decent sites cavity was noted. Once again no fistula tract was seen. Area was packed with a quarter-inch Nu Gauze and local was used in the circumferential perirectal fashion create a block. Dry dressings were placed and a mesh panties to hold dressing in place. At the end the case all sponge instrument needle counts were correct. Estimated blood loss was minimal the specimen was sent but cultures were sent. Patient was extubated returned stable to recovery room
[2024-11-28] MEDS: Morphine Sulfate 2 MG/ML CARTRIDGE IVPUSH (23:27)
[2024-11-28] MEDS: oxyCODONE HCl Immed Release 5 MG TABLET 10 MG PO (23:32)
[2024-11-29] MEDS: Piperacillin Sodium/Tazobactam 3.375 GM in 0.9 % Sodium Chloride 50 ML IV ×2 (03:13→08:41)
[2024-11-29 04:00] VITALS: BP 131/68; PULSE 62; RESP 18; TEMP 37.3; O2SAT 96
[2024-11-29] MEDS: 0.9 % Sodium Chloride Flush 3 ML SYRINGE IVFLUSH (07:15)
[2024-11-29] MEDS: Docusate Sodium 100 MG CAPSULE PO (07:15)
[2024-11-29] MEDS: oxyCODONE HCl Immed Release 5 MG TABLET 10 MG PO ×2 (07:15→11:36)
[2024-11-29 07:56] VITALS: BP 135/71; PULSE 63; RESP 16; TEMP 36.7; O2SAT 96
--- NOTE | 2024-11-29 08:11 | P.PNGS_ITS ---
Subjective Subjective Date of Service: 11/29/24 Interval history: Complains of pain on I&D site No fever He does state generally is improved overall Physical Exam 2 Vital Signs: Vital Signs: Last Vital Signs Temp 98.1 F 11/29/24 07:56 Pulse 63 11/29/24 07:56 Resp 16 11/29/24 07:56 BP 135/71 11/29/24 07:56 Pulse Ox 96 11/29/24 07:56 O2 Del Method Room Air 11/29/24 07:56 BMI result Body Mass Index 26.6 Const: General: comfortable and no acute distress Resp: Effort & Inspection: normal respiratory effort Cardio: Rate: regular rate GI: Other: Rectal exam shows the I&D site to have minimal induration, no spreading cellulitis, packing in place Objective Data Active Medications Acetaminophen (Acetaminophen 325 Mg Tablet) 650 mg PO Q6H PRN PRN Reason: Pain, Mild 1-3,fever,headache Calcium Carbonate (Calcium Carbonate 750 Mg Tab.Chew) 750 mg PO Q4H PRN PRN Reason: Heartburn Docusate Sodium (Docusate Sodium 100 Mg Capsule) 100 mg PO BID [facility] Last Admin: 11/29/24 07:15 Dose: 100 mg Documented By: NAHOMI Piperacillin Sod/Tazobactam (Sod 3.375 gm/ Sodium Chloride) 50 mls @ 100 mls/hr IV Q6H [facility] Last Infusion: 11/29/24 03:56 Dose: Infused Documented By: SASHA Magnesium Hydroxide (Milk Of Magnesia 30 Ml Oral.Susp) 30 ml PO DAILY PRN PRN Reason: Constipation Melatonin (Melatonin 3 Mg Tablet) 6 mg PO BEDTIME PRN PRN Reason: Insomnia Morphine Sulfate (Morphine Sulfate 4 Mg/Ml Cartridge) 3 mg IVPUSH Q4H PRN; Protocol PRN Reason: Pain, Severe (Pain Scale 7-10) Last Admin: 11/28/24 11:38 Dose: 3 mg Documented By: VAMSHI Morphine Sulfate (Morphine Sulfate 2 Mg/Ml Cartridge) 2 mg IVPUSH Q3H PRN; Protocol PRN Reason: Pain, Severe (Pain Scale 7-10) Last Admin: 11/28/24 23:27 Dose: 2 mg Documented By: SASHA Naloxone HCl (Naloxone Hcl 0.4 Mg/Ml Vial) 0.04 mg IVPUSH Q5M PRN PRN Reason: Excessive sedation or RR < 8 Oxycodone HCl (Oxycodone Hcl Immed Release 5 Mg Tablet) 10 mg PO Q3H PRN PRN Reason: Pain, Moderate(Pain Scale 4-6) Last Admin: 11/29/24 07:15 Dose: 10 mg Documented By: NAHOMI Sodium Chloride (0.9 % Sodium Chloride Flush 3 Ml Syringe) 3 ml IVFLUSH QSHIFT RAMBO Last Admin: 11/29/24 07:15 Dose: 3 ml Documented By: NAHOMI Labs 11/27/24 11:22 11/27/24 11:22 Labs: Laboratory Results - last 24 hr 11/27/24 15:43 Chlam trachomat DNA PCR NOT DETECTED N.gonorrhoeae DNA (PCR) NOT DETECTED Microbiology Microbiology Results: Microbiology 11/28/24 13:52 Gram Stain - Final Abscess Rectal Procedures Date of Service Date of Service: 11/29/24 Progress Note: A&P Assessment and plan (1) Henrietta-rectal abscess: Status: Acute Assessment and Plan: Status post I&D Minimal residual induration he looks well overall I removed his packing I have instructed him on wound care with frequent warm soaks He can be discharged later today with oral antibiotics Time Spent With Patient Time: Total time managing care of this patient today ____ minutes. Quality Stroke Does the patient have a stroke diagnosis?: No VTE Prior VTE?: No VTE Risk Level:: Surgical - low VTE Device Contraindication: Treatment Not Indicated VTE Drug Contraindication: Treatment Not Indicated
--- NOTE | 2024-11-29 10:50 | HO.POSTANES ---
Post Anesthesia Evaluation Post Anesthesia Evaluation Date of Service: 11/29/24 Vital Signs: Vital Signs Temp Pulse Resp BP Pulse Ox O2 Del Method 11/29/24 07:56 98.1 F 63 16 135/71 96 Room Air 11/29/24 04:00 99.2 F 62 18 131/68 96 Room Air 11/28/24 23:17 98.8 F 68 18 122/71 97 Room Air Anesthesia: General Mental Status: Awake Pain Control: Satisfactory Nausea/Vomiting: None Hydration: Adequate Anesthesia-Related Issues: No Anes. Related Issues
[2024-11-29 12:00] VITALS: BP 128/72; PULSE 68; RESP 16; TEMP 36.8; O2SAT 97
[2024-11-29 12:34] VITALS: O2SAT 97
--- NOTE | 2024-11-29 13:39 | MHC.CM.PN ---
DP: PT HAS BEEN MEDICALLY CLEARED FOR DC HOME, NO SERVICES. PT WILL TRANSPORT VIA [facility] AT 2:30 PM
--- NOTE | 2025-04-04 09:27 | P.DS_ITS ---
DS: Providers Provider Date of Service: 11/29/24 Date of admission: 11/27/24 19:18 Date of discharge: 03/29/25 Primary care physician: Elba Ruiz MD Admitting clinician: Trinity Ramirez Attending physician on discharge: Noble Calderon DS: Diagnosis Discharge Diagnosis (1) Henrietta-rectal abscess: Status: Resolved DS: Summary Hospital Course Hospital Course: pt presented with rectal pain to the ER and underwent an ID in the OR after ct scan schows large perirectal abscess. he was treated with iv antibx and then changed to augmentin for d c home the next day. Time Attestation Discharge Coordination Time (in mins): 20 Quality: Safe Use of Opioids Does Pt have an Active Cancer Diagnosis on the Problem List?: No Quality: Stroke Does the patient have a stroke diagnosis?: No Physical Exam Vital Signs: Vital Signs: Last Vital Signs Temp 98.3 F 11/29/24 12:00 Pulse 68 11/29/24 12:00 Resp 16 11/29/24 12:00 BP 128/72 11/29/24 12:00 Pulse Ox 97 11/29/24 12:34 O2 Del Method Room Air 11/29/24 12:34 BMI result Body Mass Index 26.6 GI: Other: benign skin looks good with dressing over the perirectal area DS: Data Data Completed and Pending Completed studies during hospitalization [Text1]: Procedures Drainage of Rectum, Via Natural or Artificial Opening (11/27/24) Discharge Plan Discharge Anticipated Discharge Date/Time: 11/29/24 13:26 Patient Disposition: Home, Self-Care Discharge Diagnosis: perirectal abscess Referrals: Noble Calderon MD [Physician] - 1 Week Physician,Nadia J [Physician] - 1 Week Discharge Medications: New amoxicillin-pot clavulanate 875-125 mg tablet 1 tab PO BID Qty: 14 0RF Continued ondansetron 4 mg tablet,disintegrating 4 mg PO DAILY PRN (Reason: nausea and vomiting) 5 Days Qty: 7 0RF acetaminophen [Tylenol] 325 mg Tablet 650 mg PO Q6H PRN (Reason: Pain) ibuprofen [Advil] 200 mg Tablet 400 mg PO Q8H PRN (Reason: Pain) Discharge Orders: Discharge Order (Routine); Ordered 11/29/24 Ordered By: Raquel Madrigal Diet: Advance to usual diet Activity on Discharge: As tolerated Stand Alone Forms: Patient Portal Discharge page Print Language: [place] Island[place] Activity Restrictions/Additional Instructions: Hot sitz baths three times a day and after bowel movements Massage area of the abscess 4 times a day Follow up in office in a week. ([phone]) Call Your Doctor Or Return to ED If: ? ? -Your temperature exceeds 101.5? F? ? ? -You experience excessive pain or swelling ? ? -You have an unexpected reaction to medication ? ? -You experience continued vomiting/nausea Care Plan Goals: Return to baseline health and resume normal activities following recovery period. Wound healing. Health Concerns: perirectal abscess Plan of Treatment: s/p I&D of perirectal abscess IV transitioned to oral abx f/u in office Assessment: Doing well Patient Instructions: Sitz Bath (GEN) Discharge Date/Time: 11/29/24 13:56
== END 2024-11-29 13:56 | disposition home or self-care (01) | DRG 254 ==
LOC: HO.ED 19:02 → HO.EDOVER 19:38 → HO.S3 11-28 01:50
PROVIDERS: Physician Assistant Medical; Registered Nurse Emergency; Admitting Provider Surgery; Emergency Provider Emergency Medicine; PCP Internal Medicine; Visit Provider Surgery
PROC: 0D9P7ZZ Drainage of Rectum, Via Natural or Artificial Opening (ICD-10-PCS; principal; 2024-11-28 13:00)
DX: K61.1 Rectal abscess (principal); F17.210 Nicotine dependence, cigarettes, uncomplicated; Z71.6 Tobacco abuse counseling
CPT/HCPCS: 36415; 72193; 80053; 81001; 81003; 83735; 85025; 87070; 87205; 87491; 87591; 99285; J0131; J1100; J2003; J2250; J2270; J2405; J2543; J2704; J3010; Q9967

== ENCOUNTER → 2024-11-27 16:37 | Outpatient (BNV) | payer OTHER, SELFPAY | PROVIDERS: Emergency Provider Emergency Medicine; Visit Provider Radiology Diagnostic Radiology | DX: K61.1 Rectal abscess (principal) | CPT/HCPCS: 72193 ==

== ENCOUNTER → 2024-11-27 19:18 | Outpatient (BNV) | payer OTHER, SELFPAY | PROVIDERS: Admitting Provider Surgery; Emergency Provider Emergency Medicine; Visit Provider Surgery | DX: K61.1 Rectal abscess (principal) | CPT/HCPCS: 46040; 99222 ==

== ENCOUNTER → 2024-12-09 12:36 | Outpatient (BNVA) | payer OTHER, SELFPAY | PROVIDERS: PCP Internal Medicine; Visit Provider Surgery | DX: K61.1 Rectal abscess (principal) | CPT/HCPCS: 99212 ==

== ENCOUNTER 2024-12-09 12:40 | Outpatient (AMB) | payer OTHER, SELFPAY ==
[2024-12-09 12:36] VITALS: BMI 26.6
--- NOTE | 2024-12-09 12:36 | A.OFFVIS_ITS ---
Vital Signs 12/09/24 12:36 Height 5 ft 7 in Weight 170 lb BMI 26.6 Intake Visit Reasons: Johana-rectal abscess Intake Note: This patient presents for [facility] emergency department follow-up for johana rectal abscess. Pt c/o; reports he has been feel well overall, no complaints. Screw Machine Tool Setter Required: Yes Screw Machine Tool Setter Services: Screw Machine Tool Setter Present Screw Machine Tool Setter Name: Merline Information Interpreted: non-clinical & clinical Accompanied by: Self / Same As Patient Allergies No Known Allergies Allergy (Verified 12/09/24 12:44) Medication List - Last Reconciled 12/09/24 by Noble Calderon MD acetaminophen (Tylenol) 650 mg PO Q6H PRN amoxicillin-pot clavulanate 875-125 mg 1 tab PO BID ibuprofen (Advil) 400 mg PO Q8H PRN ondansetron 4 mg PO DAILY PRN 5 days HPI HPI Johana-rectal abscess: Details: [age] year old male referred by the ER for a perirectal abscess. He went to the ER last 11/27/2024 because of rectal pain. At that time, at CT scan was done which showed a 2.7 cm perirectal abscess on the right. He was sent home on antibiotics He says he currently denies any pain at all anymore. He said his pain had resolved a few days after his ER visit. He denies any tenderness. He denies any fever or chills. He says he feels well overall. He denies any swelling in the perianal area. [facility] Surgical History History of testicular surgery Family History Father Liver cancer Social History Household Members: Spouse Housing: Apartment Do you presently have visiting nurse or other home services: No Patient Tobacco Use Status: Current everyday Tobacco user Tobacco use type: Cigarette Cigarette Packs Per Day: 2 Cigarettes Per Day: 40.0 Substance Use Type: Marijuana service: No Review of Systems Const Denies chills and Denies fever(s) Card Denies chest pain, Denies dyspnea and Denies dyspnea on exertion Resp Denies cough, Denies dyspnea and Denies dyspnea on exertion GI Denies hematochezia and Denies change in bowel habits Denies hematuria and Denies difficulty urinating Musc Denies back pain and Denies limited range of motion Neuro Denies focal weakness and Denies convulsions Psych Denies depression and Denies mood swings Physical Exam Vital Signs: BMI result Body Mass Index 26.6 Const General: comfortable and no acute distress Orientation/consciousness: patient oriented x3 Neck Neck: Yes no lymphadenopathy Resp Auscultation: clear to auscultation bilaterally Cardio Rhythm: regular rhythm GI Other: Rectal exam shows no perianal induration, denies or suggestion of a fistulous disease. There is no tenderness on examination. There is no palpable mass. Palpation (GI): Soft to palpation, nontender and no guarding Neuro General: patient oriented x3 Assessment & Plan Assessment & Plan (1) Johana-rectal abscess: Code(s): K61.1 - Rectal abscess Category: Medical Plan: He went to the ER for rectal pain last November 27 and he had a CAT scan showing what appeared to be up to 0.7 cm perirectal abscess. However, he says he his pain has resolved completely a few days after that. He currently denies any tenderness. Examination is unremarkable. There is no tenderness, or any induration in the perianal area. There is no suggestion of any inflammatory process I therefore told him that if he has symptoms or concerns down the line, he should come back to the office to be re-evaluated. He is comfortable with the plan. Coding Level of Care Code New Pt Level 3 (99753) Diagnoses Johana-rectal abscess K61.1
--- OUTSIDE RECORDS SUMMARY | 2024-12-09 13:29 | XMS_ITS | Encounter Summary ---
Author Organization [employer] Address [address] [facility] [address] [place] [address] Care Team Providers Care Cargo Trimmer Name Role Phone Unavailable Primary Care Provider Unavailabl e Reason for Visit * Reason Onset Date Comments appt 07/07/2024 Encounter Details Date Type Department Care Team (Late st Contact Info) Description 07/07/2024 Telephone C ADULT DENTAL [address], [place] [phone] Wiley Suh DDS [address], [place] [id number] appt Social History Tobacco Use Types Packs/Day [...]
--- OUTSIDE RECORDS SUMMARY | 2024-12-09 13:29 | XMS_ITS | Clinical Summary ---
Author Organization [employer] Address [address] [facility] [address] [place] [address] Care Team Providers Care Tape Machine Tailer Name Role Phone Unavailable Primary Care Provider [...]
== END 2024-12-09 12:50 | disposition home or self-care (01) ==
PROVIDERS: PCP Internal Medicine; Visit Provider Surgery
DX: K61.1 Rectal abscess (principal)
CPT/HCPCS: 99024

== ENCOUNTER 2025-06-10 15:17 | Outpatient (AMB) | payer OTHER, SELFPAY ==
--- NOTE | 2025-06-10 15:15 | MHC.PC.OV ---
Vital Signs 06/10/25 15:22 Height 5 ft 8.9 in Weight 164 lb 8 oz BMI 24.4 BP 116/64 Blood Pressure Location Rt femoral Position Sitting Respiration 16 Pulse 84 Pulse Source Pulse Oximeter Temp 98.3 F Temp Source Temporal Artery Scan Pulse Oximetry (%) 98 Oxygen Delivery Method Room Air Intake Visit Reasons: establish care Contact Lens Blocker And Cutter Required: No Accompanied by: Self / Same As Patient Allergies No Known Allergies Allergy (Verified 06/10/25 15:58) Medication List - Last Reconciled 06/10/25 by Rosetta Leroy PA-C acetaminophen (Tylenol) 650 mg PO Q6H PRN cyclobenzaprine 10 mg PO Q8H meloxicam 15 mg PO DAILY ondansetron 4 mg PO DAILY PRN 5 days Tobacco use date assessed: 06/10/25 Dental Screening Dental Screen Date: 06/10/25 Did you have a dental visit in the last 12 months?: Yes Did you have a dental problem in the last 6 months where you did not have access to dental care?: No Was dental information given to patient?: Patient has dentist HPI establish care HPI Details The patient is a 50-year-old male presenting for a annual physical examination, new patient appointment and management of chronic conditions. The patient has a history of degenerative disc disease, which was identified through imaging showing compressed discs and arthritic changes in the spine. He experiences significant back pain, which sometimes prevents him from walking. Pain management and orthopedic consultations have been considered for further evaluation and treatment. The patient had a rectal abscess removed approximately two months ago. He reports occasional discomfort since the procedure. The patient has been diagnosed with prediabetes, with an A1c of 6.0%. He has been advised to reduce sugar intake to prevent progression to diabetes. The patient reports experiencing intermittent chest pain, described as a pulsing sensation, occurring both at rest and during activity. A stress test and echocardiogram have been planned to further investigate these symptoms. The patient has calluses on his feet and has been referred to a clinical appeals specialist for further evaluation. [facility] Medical History (Updated 06/10/25 @ 16:58 by Rosetta Leroy PA-C) Prediabetes History of rectal abscess Degenerative disc disease Pterygium Corns and callus Intermittent chest pain Colon cancer screening Annual physical exam Left knee pain Chronic back pain Surgical History History of testicular surgery Family History Father Liver cancer Social History Household Members: Spouse Housing: Apartment Do you presently have visiting nurse or other home services: No Alcohol intake: current Alcohol intake frequency: does not drink Patient Tobacco Use Status: Current everyday Tobacco user Tobacco use type: Cigarette Cigarette Packs Per Day: 2 Cigarettes Per Day: 40.0 Substance Use Type: Marijuana service: No Current occupational status: employed Cognitive needs: No Hearing needs: No Vision needs: No Questionnaire PHQ-9 Over the last 2 weeks, how often have you been bothered by any of the following problems? 1. Little interest or pleasure in doing things: not at all 2. Feeling down, depressed, or hopeless: not at all 3. Trouble falling or staying asleep, or sleeping too much: not at all 4. Feeling tired or having little energy: not at all 5. Poor appetite or overeating: not at all 6. Feeling bad about yourself - or that you are a failure or have let yourself or your family down: not at all 7. Trouble concentrating on things, such as reading the newspaper or watching television: not at all 8. Moving or speaking so slowly that other people could have noticed. Or the opposite - being so fidgety or restless that you have been moving around a lot more than usual: not at all 9. Thoughts that you would be better off or of hurting yourself in some way: not at all Total score: 0 Depression Screening Interpretation: Negative Depression Screening Done: Yes 79516 - PHQ-9 Billing: Yes Source: Developed by Drs. Kal Thakkar, Gerri Brumfield, Gurjit Pedraza and colleagues, with an educational smaira from [employer]. Thrive Questionnaire Date Thrive assessed: 06/10/25 I am a: Patient What is your living situation today?: I have a steady place to live Within the past 12 months, did the food you bought not last and you didn't have the money to get more?: Never true Within the past 12 months, did you worry whether your food would run out before you got money to buy more?: Never true Do you have trouble paying for medicines?: No Do you have trouble getting transportation to medical appointments?: No Do you have trouble paying your heating and electricity bill?: No Do you have trouble taking care of your child, family member or friend?: No Do you have trouble with day-to-day activities such as bathing, preparing meals, shopping, managing finances, etc.?: No Are you currently unemployed and looking for a job?: No Are you interested in more education?: No Please select the resources that you would like help with: None Currently or been in a relationship where the following occur: No concerns reported THRIVE Score: 0 AUDIT C Alcohol Use Questionnaire (AUDIT-C) 1. How often do you have a drink containing alcohol?: Never 3. How often do you have six or more drinks on one occasion?: Never Total Score: 0 Score Reviewed/Action Taken: No PERRY-7 AMB Questionnaire PERRY-7 Date PERRY - 7 assessed: 06/10/25 Feeling nervous, anxious, or on edge: 1 = Several days Not being able to stop or control worryin = Not at all Worrying too much about different things: 1 = Several days Trouble relaxin = Not at all Being so restless that it is hard to sit still: 1 = Several days Becoming easily annoyed or irritable: 1 = Several days Feeling afraid as if something awful might happen: 1 = Several days Total PERRY-7 score (0-4 normal; 5-9 mild; 10-14 moderate; 15-21 severe): 5 Source: Developed by Drs. Kal Thakkar, Gerri Brumfield, Gurjit Pedraza and colleagues, with an educational samira from [employer]. PERRY-7 Assessment Billing PERRY-7 Assessment Tool: PERRY-7 Assessment 53522 Review of Systems Const Details: - Cardiovascular: Reports intermittent chest pain described as a pulsing sensation. Denies palpitations or syncope. - Endocrine: Reports no symptoms of diabetes but has been diagnosed with prediabetes. - Musculoskeletal: Reports significant back pain due to degenerative disc disease. Denies joint swelling or stiffness. - Dermatological: Reports calluses on feet. All systems reviewed & are unremarkable except as noted in HPI and below Physical exam (Primary Care) Vital Signs: Last Vital Signs Temp 98.3 F 06/10/25 15:22 Pulse 84 06/10/25 15:22 Resp 16 06/10/25 15:22 BP 116/64 06/10/25 15:22 Pulse Ox 98 06/10/25 15:22 Oxygen Delivery Method Room Air 06/10/25 15:22 Care Plan Goal for BP management: <140/90 at Goal BMI result Body Mass Index 24.4 Normal BMI Tobacco/Smoking Status: Tobacco use Status Tobacco use date assessed 06/10/25 06/10/25 15:21 Patient Tobacco Use Status Current everyday Tobacco 06/10/25 15:32 Tobacco use type Cigarette 06/10/25 15:32 PHQ-9: PHQ-9 Score PHQ-9: Total score 0 06/10/25 16:26 Depression Screening Interpretation: Negative Thrive Assessment: Date of Thrive Assessment Date Thrive assessed 06/10/25 06/10/25 15:21 Currently or been in a relationship where the following occur: No concerns reported Const Other: Appearance: Alert. Oriented X3. No acute distress. Head: Normal external exam. Normocephalic. Atraumatic. Eyes: Pupils are equal, round, and reactive to light. Extraocular movements intact. Conjunctiva and sclera normal. Eyelids normal. Ears: External auditory canal normal. Tympanic membranes normal. Throat: Pharynx normal. Uvula midline. Moist mucous membranes. Neck: Normal inspection. Neck supple. Full range of motion. No adenopathy. Thyroid Normal. No meningeal signs. No neck mass noted. Cardiovascular: Normal heart rate and rhythm. Heart sound normal. No murmurs noted. Pulses normal throughout. Respiratory: No respiratory distress. Painless inspiration. Breath sounds normal. No wheezes/rales/rhonchi noted. Chest nontender. No accessory muscle usage noted or decreased air movement noted. Abdomen: Soft and nontender. Bowel sounds normal in all 4 quadrants. No distention noted. No organomegaly noted. No visible injury noted. Back: No costovertebral angle tenderness. Full range of motion noted. Skin: Skin warm and dry. Normal skin color. Normal skin turgor. Calluses and corns to bilateral feet no signs of infection. No rashes/lesions/lacerations noted. Extremities: No lower extremity edema. Extremities exhibit normal range of motion. Extremities nontender. Neuro: Oriented X 3. No motor deficit. No sensory deficit. Reflexes normal. Results AMB Hemoglobin A1c AMB Hemoglobin A1c 6.0 % Last Edit by MAALIA Gonsalez on 06/10/25 16:12 Results Reviewed Results Reviewed: Laboratory Last Values Hgb A1c (Clinic) 6.0 % (4.0-6.0) 06/10/25 16:11 - Labs: A1c level of 6.0%, indicating prediabetes. - Imaging: X-ray of the back showing degenerative disc disease with compressed discs and arthritic changes. Coding Level of Care Code New Pt Level 4 (78670) New Pt Prev Care 40-64y(93696) Diagnoses Annual physical exam Z00.00 Degenerative disc disease History of rectal abscess Z87.19 Prediabetes R73.03 Intermittent chest pain R07.9 Corns and callus L84 Chronic back pain M54.9; G89.29 Pterygium H11.009 Left knee pain M25.562 Colon cancer screening Z12.11 Additional Codes PERRY-7 Assessment Billing - PERRY-7 Assessment Tool: PERRY-7 Assessment 46472 ([id number]) PHQ-9 - 54157 - PHQ-9 Billing: Yes ([id number]) Assessment & Plan Assessment & Plan (1) Annual physical exam: Code(s): Z00.00 - Encounter for general adult medical examination without abnormal findings Category: Medical (2) Degenerative disc disease: Category: Medical Plan: The patient will be referred to pain management and an university extension specialist for further evaluation and management of degenerative disc disease. Consideration for physical therapy and potential surgical intervention will be discussed based on the specialist's recommendations. (3) History of rectal abscess: Code(s): Z87.19 - Personal history of other diseases of the digestive system Category: Medical Plan: The patient has undergone surgical removal of a rectal abscess two months ago and reports occasional discomfort. Follow-up care will include monitoring for any signs of recurrence or complications. (4) Prediabetes: Code(s): R73.03 - Prediabetes Category: Medical Plan: The patient has been diagnosed with prediabetes, with an A1c of 6.0%. Lifestyle modifications, including dietary changes to reduce sugar intake, have been recommended to prevent progression to diabetes. (5) Intermittent chest pain: Code(s): R07.9 - Chest pain, unspecified Category: Medical Plan: The patient reports intermittent chest pain, and a stress test along with an echocardiogram has been planned to evaluate cardiac function. Further management will be based on the results of these tests. (6) Corns and callus: Code(s): L84 - Corns and callosities Category: Medical Plan: The patient has been referred to a clinical appeals specialist for evaluation and management of calluses on the feet. (7) Chronic back pain: Code(s): M54.9 - Dorsalgia, unspecified; G89.29 - Other chronic pain Category: Medical Plan: The patient will be referred to pain management and an university extension specialist for further evaluation and management of degenerative disc disease. Consideration for physical therapy and potential surgical intervention will be discussed based on the specialist's recommendations. (8) Pterygium: Code(s): H11.009 - Unspecified pterygium of unspecified eye Category: Medical Plan: Will refer to forest fire control officer for further evaluation management. Condition is chronic and stable continue to monitor. (9) Left knee pain: Code(s): M25.562 - Pain in left knee Category: Medical Plan: Will order x-ray of left knee and refer to orthopedist. Condition is chronic and stable continue to monitor. (10) Colon cancer screening: Code(s): Z12.11 - Encounter for screening for malignant neoplasm of colon Category: Medical Plan: Will refer to gastroenterology for colon cancer screening. Plan Plan Patient was informed and verbally consented to the use of an ambient scribe for clinic note documentation during this visit. 1. Degenerative Disc Disease The patient will be referred to pain management and an university extension specialist for further evaluation and management of degenerative disc disease. Consideration for physical therapy and potential surgical intervention will be discussed based on the specialist's recommendations. 2. Rectal Abscess The patient has undergone surgical removal of a rectal abscess two months ago and reports occasional discomfort. Follow-up care will include monitoring for any signs of recurrence or complications. 3. Prediabetes The patient has been diagnosed with prediabetes, with an A1c of 6.0%. Lifestyle modifications, including dietary changes to reduce sugar intake, have been recommended to prevent progression to diabetes. 4. Chest Pain The patient reports intermittent chest pain, and a stress test along with an echocardiogram has been planned to evaluate cardiac function. Further management will be based on the results of these tests. 5. Calluses On Feet The patient has been referred to a clinical appeals specialist for evaluation and management of calluses on the feet. I discussed with the patient the importance of managing prediabetes through lifestyle changes, including dietary modifications to reduce sugar intake. We also talked about the need for further evaluation of his chest pain through a stress test and echocardiogram to rule out any cardiac issues. The patient was informed about the referral to pain management and orthopedics for his degenerative disc disease, and the potential for physical therapy or surgical intervention. Additionally, I recommended a podiatry consultation for the calluses on his feet. Orders: Orders C Reactive Protein Today Z00.00 - Encounter for general adult medical examination without abnormal findings Comprehensive [place]. Panel Fast Today Z00.00 - Encounter for general adult medical examination without abnormal findings Vitamin D 25-OH Total Today Z00.00 - Encounter for general adult medical examination without abnormal findings CA echo transthoracic complete Today R07.9 - Chest pain, unspecified ECG 12 lead EKG Today R07.9 - Chest pain, unspecified XR knee LT 4V Today M25.562 - Pain in left knee Complete Blood Count Auto Diff Today Z00.00 - Encounter for general adult medical examination without abnormal findings Magnesium Today Z00.00 - Encounter for general adult medical examination without abnormal findings Lipid Panel Today Z00.00 - Encounter for general adult medical examination without abnormal findings Liver Panel Today Z00.00 - Encounter for general adult medical examination without abnormal findings Vitamin B12 and Folate Today Z00.00 - Encounter for general adult medical examination without abnormal findings PSA,Total (Free>4and<10) Today Z00.00 - Encounter for general adult medical examination without abnormal findings CA stress test Today R07.9 - Chest pain, unspecified NM cardiolite stress test Today I51.89 - Other ill-defined heart diseases RT home sleep study Today G47.30 - Sleep apnea, unspecified AMB Hemoglobin A1c Today Z13.9 - Encounter for screening, unspecified Referrals Pain Management Referral G89.29 - Other chronic pain, M25.562 - Pain in left knee, M54.9 - Dorsalgia, unspecified Orthopedics Referral G89.29 - Other chronic pain, M25.562 - Pain in left knee, M54.9 - Dorsalgia, unspecified Podiatry Referral L84 - Corns and callosities Gastroenterology Referral Z12.11 - Encounter for screening for malignant neoplasm of colon Ophthalmology Referral H11.009 - Unspecified pterygium of unspecified eye Medications: New cyclobenzaprine 10 mg PO Q8H 30 tabs 3RF meloxicam 15 mg PO DAILY 30 tabs 3RF Patient Instructions: - Follow up with pain management and orthopedic specialists as referred. - Schedule and complete the stress test and echocardiogram as planned. - Implement dietary changes to reduce sugar intake to manage prediabetes. - Visit a clinical appeals specialist for evaluation of foot calluses. - Return for follow-up in three months to reassess health status and management plan.
[2025-06-10 15:22] VITALS: BP 116/64; PULSE 84; RESP 16; TEMP 36.8; O2SAT 98; BMI 24.4
== END 2025-06-10 16:58 | disposition home or self-care (01) ==
PROVIDERS: PCP Internal Medicine; Visit Provider Physician Assistant Medical
DX: Z00.00 Encounter for general adult medical examination without abnormal findings (principal); R73.03 Prediabetes; R07.9 Chest pain, unspecified; L84 Corns and callosities; M54.9 Dorsalgia, unspecified; G89.29 Other chronic pain; Z87.19 Personal history of other diseases of the digestive system; H11.009 Unspecified pterygium of unspecified eye; M25.562 Pain in left knee; Z12.11 Encounter for screening for malignant neoplasm of colon

== ENCOUNTER → 2025-06-10 15:17 | Outpatient (BNVA) | payer OTHER, SELFPAY | PROVIDERS: PCP Internal Medicine; Visit Provider Physician Assistant Medical | DX: Z00.00 Encounter for general adult medical examination without abnormal findings (principal); R73.03 Prediabetes; R07.9 Chest pain, unspecified; L84 Corns and callosities; M54.9 Dorsalgia, unspecified; G89.29 Other chronic pain; H11.009 Unspecified pterygium of unspecified eye; M25.562 Pain in left knee; Z87.19 Personal history of other diseases of the digestive system | CPT/HCPCS: 83036; 96127; 99202; 99386 ==

== ENCOUNTER 2025-08-26 07:23 | Outpatient (REF) | payer OTHER, SELFPAY ==
--- OUTSIDE RECORDS SUMMARY | 2025-08-26 07:27 | XMS_ITS | Clinical Summary ---
Author Organization [employer] Address [address] [place] [address] Care Team Providers Care Paralegal Supervisor Name Role Phone Unavailable Primary Care Provider Unavailabl e Allergies No known active allergies Medications cyclobenzaprine (Flexeril) 5 MG tablet TAKE 1 TABLET BY MOUTH THREE TIMES A DAY NEEDED FOR PAIN FOR 7 DAYS 02/25/2024 Active acetaminophen (Tylenol 8 Hour) 650 MG ER tablet Take 1 tablet (650 mg) by mouth every 8 (eight) hours if needed for mild pain. Do not crush, chew, or split. 30 tablet 08/05/2025 Active ibuprofen 600 MG tablet Take 1 tablet (600 mg) by mouth 3 times daily. 15 tablet 08/05/2025 Active amoxicillin (Amoxil) 500 MG capsule Take 1 capsule (500 mg) by mouth every 8 (eight) hours for 7 days. 21 capsule 08/05/2025 08/12/20 25 Active Problems Problem Noted Date Diagnosed Date Dental caries 08/05/2025 Retained dental root 08/05/2025 Dental abscess 06/21/2025 Pain, dental 06/21/2025 Encounters Date Type Department Care Team Description 08/05/2025 10:30 AM EDT Office Visit [facility] [address] [place] [address] Wiley Suh DDS Pain, dental (Primary Dx); Dental abscess; Dental caries; Retained dental root 06/22/2025 9:00 AM EDT Office Visit [facility] [address] [place] [address] Maria Isabel Flores DDS Encounter for dental examination (Primary Dx); Dental caries; Dental calculus; Periodontal disease; Rampant dental caries; Poor oral hygiene; Gum inflammation 06/21/2025 10:00 AM EDT Office Visit [facility] [address] [place] [address] Wiley Suh DDS Dental abscess (Primary Dx); Pain, dental 06/15/2025 Telephone [facility] [address] [place] [address] Wiley Suh DDS from Last 3 Months Social History Tobacco Use Types Packs/Day Years Used Date Smoking Tobacco: Former Cigarettes 0.5 25.8 S tarted: 2000 Smokeless Tobacco: Former Tobacco [...] Sign Reading Time Taken Comments Blood Pressure 120/72 08/05/2025 10:21 AM EDT Pulse 68 08/05/2025 10:21 AM EDT Temperature - - Respiratory Rate - - Oxygen Saturation - - Inhaled Oxygen Concentration - - Weight - - Height - - Body Mass Index - - Plan of Treatment Upcoming Encounters Date Type Department Care Team (Late st Contact Info) Description 09/09/2025 9:00 AM EST Office Visit [facility] [address] [place] [address] Wiley Suh DDS [address] [place] [address] Health Maintenance Due Date Last Done Comments CT Colonography 1977 Colonoscopy 1977 Colorectal Cancer Screening 1977 Dental Prophylaxis 1977 Depression Screening 1977 FIT DNA/Cologuard 1977 FIT 1977 FOBT 1977 HIV Screening 1977 Lipid Panel 1977 SDOH Screening 1977 Sigmoidoscopy 1977 Disability Screening 1977 Alcohol/Substance Use Screening 1989 Family Planning (PISQ) 1992 Hepatitis C Screening 1995 DTaP/Tdap/Td Vaccines (1 - Tdap) 1996 Hepatitis B Vaccines (1 of 3 - 19+ 3-dose series) 1996 COVID-19 Vaccine ( - 2023-2 5 season) 2025 Influenza Vaccine (#1) 2025 Dental Oral Exam 12/21/2025 06/22/2025 Dental X-Ray: Bitewings 05/21/2026 05/20/2025 Tobacco Screening 08/05/2026 08/05/2025 Zoster Vaccines (1 of 2) 2027 Dental X-Ray: Full Mouth 08/06/2028 025, 04/08/2024 RSV Patients and Patients Aged 60 years or older (1 - [...] patient's age to complete this topic Meningococcal B Vaccine Aged Out No l onger eligible based on patient's age to complete this topic Meningococcal Vaccine Aged Out No amado saul eligible based on patient's age to complete this topic Pneumococcal Vaccine: Pediatrics (0 to 5 Years) and At-Risk Patients (6 to 49) Years Aged Out No longer eligible b ased on patient's age to complete this topic RSV under 20 months Aged Out No longe r eligible based on patient's age to complete this topic Rotavirus Vaccines Aged Out No longer eligible based on patient's age to complete this topic Procedures Procedure Name Priority Date/Time Associated Diagnosis Comments CASE PRESENTATION, DETAILED AND EXTENSIVE TREATMENT PLANNING Routine 08/05/2025 10:30 AM EDT UR ALVEOLOPLASTY IN CONJ W/ EXTRACTIONS - 4+ TEETH, PER QUAD Routine 08/05/2025 10:30 AM EDT PANORAMIC RADIOGRAPHIC IMAGE Routine 08/05/2025 10:30 AM EDT 5 EXTRACTION, ERUPTED TOOTH OR EXPOSED ROOT (ELEVATION/FORCEPS REMOVAL) Routine 08/05/2025 10:30 AM EDT 4 EXTRACTION, ERUPTED TOOTH OR EXPOSED ROOT (ELEVATION/FORCEPS REMOVAL) Routine 08/05/2025 10:30 AM EDT 2 EXTRACTION, ERUPTED TOOTH OR EXPOSED ROOT (ELEVATION/FORCEPS REMOVAL) Routine 08/05/2025 10:30 AM EDT 1 EXTRACTION, ERUPTED TOOTH OR EXPOSED ROOT (ELEVATION/FORCEPS REMOVAL) Routine 08/05/2025 10:30 AM EDT CASE PRESENTATION, DETAILED AND EXTENSIVE TREATMENT PLANNING Routine 06/22/2025 9:00 AM EDT Encounter for dental examination Dental caries Dental calculus Periodontal disease Rampant dental caries Poor oral hygiene COMPREHENSIVE ORAL EVALUATION - NEW OR ESTABLISHED PATIENT Routine 06/22/2025 9:00 AM EDT Encounter for dental examination Dental caries Dental calculus Periodontal disease Rampant dental caries Poor oral hygiene CASE PRESENTATION, DETAILED AND EXTENSIVE TREATMENT PLANNING Routine 06/21/2025 10:00 AM EDT 31 EXTRACTION, ERUPTED TOOTH OR EXPOSED ROOT (ELEVATION/FORCEPS REMOVAL) Routine 06/21/2025 10:00 AM EDT BITEWING - SINGLE RADIOGRAPHIC IMAGE Routine 05/20/2025 11:30 AM EDT Dental caries Dental abscess Rampant dental caries from Last 3 Months or Most Recently Relevant to Health Maintenance Insurance DENTAL - HSN PARTIAL (MEDICAID)
--- OUTSIDE RECORDS SUMMARY | 2025-08-26 07:27 | XMS_ITS | Encounter Summary ---
Author Organization [employer] Address [address] [place] [address] Care Team Providers Care Wood Molder Name Role Phone Unavailable Primary Care Provider Unavailabl e Reason for Visit * Reason Onset Date Comments Dr. Damian medication to pharmacy 05/20/2025 Encounter Details Date Type Department Care Team (Late st Contact Info) Description 05/20/2025 Telephone [facility] [address] [place] [address] Maria Isabel Flores DDS [address] [place] [address] Dr. Damian medication to pharmacy Social History Tobacco Use Types Packs/Day Years Used Date Smoking Tobacco: Former Cigarettes 0.5 25.8 S tarted: 2000 Smokeless Tobacco: Former Alcohol [...] encounter Miscellaneous Notes * Telephone Encounter - rBeanna Mcneil - 05/20/2025 3:37 PM EDT Message for Dr. Damian Patient is calling in checking in on status of medication. Patient is at the pharmacy and not sent.DR documented in this encounter Plan of Treatment Upcoming Encounters Date Type Department Care Team (Late st Contact Info) Description 09/09/2025 9:00 AM EST Office Visit [facility] [address] [place] [address] Wiley Suh, SIMBA [address] [place] [address] documented as of this encounter Visit Diagnoses Not on filedocumented in this encounter
--- OUTSIDE RECORDS SUMMARY | 2025-08-26 07:27 | XMS_ITS | Encounter Summary ---
Author Organization [employer] [facility] Address [address] [place] [address] Care Team Providers Care Clip Loading Machine Feeder Name Role Phone Unavailable Primary Care Provider Unavailabl e Reason for Visit * Reason Onset Date Comments appt 07/07/2024 Encounter Details Date Type Department Care Team (Late st Contact Info) Description 07/07/2024 Telephone [facility] [address] [place] [address] Wiley Suh DDS [address] [place] [address] appt Social History Tobacco Use Types Packs/Day [...] 09/09/2025 9:00 AM EST Office Visit [facility] [address] [place] [address] Wiley Suh DDS [address] [place] [address] documented as of this encounter Visit Diagnoses Not on filedocumented in this encounter
[2025-08-26 07:34] LABS: MANUAL DIFF FLAG NO
[2025-08-26 08:05] LABS: Hematocrit 43.9 % (42.0-52.0); Hemoglobin 15.0 g/dl (14.0-18.0); Imm Gran Abs Auto 0.03 X10*3/uL (0.00-0.03); Imm Gran Pct Auto 0.3 % (0.0-0.4); Lymphocytes Absolute Auto 2.5 X10*3/uL (1.2-4.9); Mean Corpuscular HGB Conc 34.2 g/dl (31.0-36.0); Mean Corpuscular Hemoglobin 31.6 pg (27.0-33.0); Mean Corpuscular Volume 92.6 fL (80.0-98.0); NRBC Abs Auto 0.000 X10*3/uL (0.0-0.012); NRBC Pct Auto 0.0 /100WBC (0.0-0.2); Platelet Count 235 X10*3/uL (160-400); Red Blood Count 4.74 X10*6/uL (4.60-5.80); White Blood Count 10.6 X10*3/uL (4.8-10.8)
[2025-08-26 08:39] LABS: Alanine Aminotransferase 37 U/L (0-40); Albumin Level 4.6 g/dL (3.5-5.0); Alkaline Phosphatase 89 U/L (39-117); Anion Gap 10 (12-20); Aspartate Amino Transferase 33 U/L (5-37); Blood Urea Nitrogen 15 mg/dL (9-16); Calcium 8.9 mg/dL (8.4-10.2); Carbon Dioxide 26 mmol/L (22-29); Chloride 109 mmol/L (96-108); Cholesterol 134 mg/dL (<200); Estimated Glomerular Filt Rate > 60; HDL Cholesterol 49 mg/dL (>40); Magnesium 2.0 mg/dL (1.6-2.6); Potassium 4.0 mmol/L (3.3-5.1); Sodium 141 mmol/L (135-145); Total Protein 7.7 g/dL (6.5-8.0); Triglycerides 58 mg/dL (<150)
[2025-08-26 08:51] LABS: PSA,Total (Free>4and<10) 1.11 ng/mL (0.00-4.00)
[2025-08-26 09:04] LABS: Folate 10.9 ng/mL (> or = 4.0); Vitamin B12 369 pg/mL (200-900)
[2025-08-26 16:07] LABS: Appearance Urine Clear; Glucose Urine UA Negative (Negative); PH 5.5 (5.0-9.0); Specific Gravity - Urine 1.020 (1.005-1.025); UMIC TRIGGER UACC YES
[2025-08-26 16:48] LABS: Microalbum/Creatinine Ratio Ur 44.2 ug/mg cr (<30)
== END 2025-08-26 07:24 | disposition home or self-care (01) ==
LOC: HO.LAB 07:23
PROVIDERS: PCP Physician Assistant Medical; Visit Provider Physician Assistant Medical
DX: Z00.00 Encounter for general adult medical examination without abnormal findings (principal); E11.9 Type 2 diabetes mellitus without complications
CPT/HCPCS: 36415; 80053; 80061; 80076; 81001; 81003; 82043; 82248; 82306; 82570; 82607; 82746; 83735; 84153; 85025; 86140